=== PATIENT | female | born 1960 | race Caucasian/White ===

== ENCOUNTER 2020-08-01 09:03 | Emergency (ER) | payer MEDICAID, SELFPAY ==
--- NOTE | 2020-08-01 09:23 | HMH.EDUTC ---
[facility] [place] Impression: COVID-19 Disposition: Home, Self-Care Condition on Discharge: Good Instructions: Preventing the Spread of Coronavirus Discharge Instructions Additional Instructions: Drink plenty of fluids. Take tylenol for pain or fever. Return if you begin to have difficulty breathing. Follow up with your regular doctor. GO TO THE ER FOR ANY WORSENING SYMPTOMS Referrals: Emerita Rico [Primary Care Provider] - Time of Disposition: 09:24 Medical Decision Making - Medical Records Medical records reviewed: No: I reviewed the patient's medical records. - Td Inquiry Pt receiving controlled substance: No Vital Signs: 08/01/20 09:30 08/01/20 09:42 Temperature 98 F Temperature Source Oral Pulse Rate 87 Pulse Rate [Right] 78 Respiratory Rate 16 16 Blood Pressure 122/68 Blood Pressure [Right Arm] 127/73 Blood Pressure Mean [Right Arm] 91 Blood Pressure Source Automatic Cuff Blood Pressure Source [Right Arm] Automatic Cuff Blood Pressure Position Sitting Blood Pressure Position [Right Arm] Sitting 02 Sat by Pulse Oximetry 99 Oxygen Delivery Method Room Air Room Air Orders (Tests/Meds): ORDERS Category Date Time Status Covid-19 Nasal PCR ([facility]) Routine Lab 08/01/20 09:12 [place] [facility] [place] - General Stated complaint: Covid test Time Seen by Provider: 08/01/20 09:23 - History of Present Illness Provider Complaint: She had a positive covid test around 2 weeks ago. She has never had any symptoms. She was sent here by her workplace to get retested. - Related Data Allergies Allergy/AdvReac Type Severity Reaction Status Date / Time Sulfa (Sulfonamide Allergy Unknown Unverified 08/23/17 14:42 Antibiotics) [SULFA (SULFONAMIDE ANTIBIOTICS)] [facility] History - Hepatitis A Screen Attestation statement:: This patient has been screened for Hepatitis A risk factors. I have reviewed the patient's past medical history: Yes ROS Obtained: Yes All systems reviewed & no additional complaints - Constitutional Constitutional: Reports system reviewed and no additional complaints, except as docu - Eyes Eyes: Reports system reviewed and no additional complaints, except as docu - ENT Ears, Nose, Mouth, and Throat: Reports system reviewed and no additional complaints, except as docu - Cardiovascular Cardiovascular: Reports system reviewed and no additional complaints, except as docu - Respiratory Respiratory: Yes system reviewed and no additional complaints, except as docu - Gastrointestinal Gastrointestingal: Reports: system reviewed and no additional complaints, except as docu Physical Exam - General General appearance: alert, in no apparent distress - Head Head exam: atraumatic, normocephalic, normal inspection - Eye Eye exam: Present: normal appearance, PERRL, EOMI - ENT ENT exam: Present: normal exam, normal oropharynx, mucous membranes moist, TM's normal bilaterally, normal external ear exam - Neck Neck exam: Present: normal inspection, full ROM, trachea midline. Absent: meningismus, lymphadenopathy - Chest Chest inspection: Present: normal inspection, symmetric chest wall rise. Absent: tenderness - Respiratory Respiratory exam: Present: normal lung sounds bilaterally. Absent: respiratory distress - Cardiovascular Cardiovascular exam: Present: regular rate, normal rhythm. Absent: JVD - Abdominal Exam Abdominal exam: Present: soft, normal bowel sounds. Absent: distention, tenderness, guarding - Extremities Exam Extremities exam: Present: normal inspection, full ROM, normal capillary refill. Absent: calf tenderness - Back Exam Back exam: Present: normal inspection. Absent: tenderness - Neurological Exam Neurological exam: Present: alert, oriented X3 - Psychiatric Psychiatric exam: Present: normal affect, normal mood - Skin Skin exam: Present: warm, dry, intact, normal color - Lymp
[2020-08-01 09:30] VITALS: BP 127/73; PULSE 78; RESP 16; O2SAT 99; BMI 24.0
[2020-08-01 09:42] VITALS: BP 122/68; PULSE 87; RESP 16; TEMP 36.6; O2SAT 97
== END 2020-08-01 09:43 | disposition home or self-care (01) ==
PROVIDERS: Emergency Provider Nurse Practitioner Family; PCP Family Medicine
DX: U07.1 COVID-19 (principal)
CPT/HCPCS: 99201; U0003

== ENCOUNTER → 2021-01-12 10:39 | Outpatient (POV) | payer MEDICAID, SELFPAY ==
[2021-01-12 10:57] VITALS: BP 101/70; PULSE 80; RESP 18; O2SAT 98; BMI 23.7
--- NOTE | 2021-01-12 11:34 | HMH.PMCON ---
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 This is the area where the patient states she has not pain. Patient has tried and failed over 6 weeks of medication management, anti-inflammatories, chiropractic and physical therapy. Patient understands that this is diagnostic and potentially a neurotomy will benefit her in the future. I will follow-up with her afterwards reassess her symptoms at that time she has been instructed to call the office if she has any issues prior to her next appointment. Dr. Peter has reviewed this note and agrees with this plan of care. This note was dictated using voice recognition software and may contain errors or omissions HPI - Data of Consult Consult date: 01/12/21 Requesting Physician: Jennifer Quiroga APRN Primary Care Provider: Latosha Pan APRN - Consult Narrative Reason for consult: Back pain History of present illness: Ms. Loco is a 60 year old female who presents today for consultation regards to her lower back pain. Patient has had pain for several years however it is getting worse. She does have a physically demanding job. She rates her pain a 7 out of 10. Bending and lifting increases pain while rest and gabapentin decrease her pain. Patient has had instances of sciatica but does not complain of that today. Patient has tried and failed chiropractic and physical therapy. She is also on Valium. She is not on any anticoagulation therapy. Patient is interested in potentially injective therapy. She is extremely tender over her facet joints in her higher lumbar area. She has positive facet loading in this area. CC: Jennifer Quiroga APRN [facility] History I have reviewed the patient's past medical history: Yes Medical History: Denies:: Cancer, Diabetes Mellitus Type 1, Diabetes Mellitus Type 2, MRSA *Have you ever received a pneumonia vaccine?: Yes *Have you received a flu vaccine this season?: Yes Other Medical History: Reports: Arthritis Amputation: No Fractures: No - *Social History Smoking Status: Current every day smoker # Packs/Day (cigarettes): 2 Alcohol Intake: never *Occupational Status:: employed Housing: house Household Members: other *Travel in the last 8 weeks: None Family Hx:: Unable to obtain Review of Systems - Review of Systems ROS General: no recent weight change, no fever, no sleep disturbances Respiratory: no cough, no shortness of air, no recurring pulmonary infections Cardiovascular/Peripheral Vascular: No chest pain, No palpitations, no edema, no shortness of breath. Gastrointestinal: no new onset incontinence, normal bowel movements reported Genitourinary: no new onset incontinence Musculoskeletal: Back pain who Psychiatric: normal mood/ affect Neurological: [denies new onset weakness in extremities], [denies new onset balance issues] Meds Home Medications Medication Instructions Recorded Confirmed Type Diclofenac Sodium [Diclofenac 75mg 75 mg PO BID 01/12/21 01/12/21 History Tab] Gabapentin [Gabapentin 400mg Cap] 400 mg PO TID 01/12/21 01/12/21 History diazePAM [Valium 10mg tablet] 5 mg PO Q4-6H 01/12/21 01/12/21 History Allergies Allergy/AdvReac Type Severity Reaction Status Date / Time Sulfa (Sulfonamide Allergy Unknown Unverified 08/23/17 14:42 Antibiotics) [SULFA (SULFONAMIDE ANTIBIOTICS)] Objective Vital signs: Pulse Resp BP Pulse Ox 80 18 101/70 L 98 01/12/21 10:57 01/12/21 10:57 01/12/21 10:57 01/12/21 10:57 Na
== END ==
PROVIDERS: PCP Nurse Practitioner; Visit Provider Clinical Nurse Specialist Family Health
DX: M47.896 Other spondylosis, lumbar region (principal)
CPT/HCPCS: 99202; G0463

== ENCOUNTER 2021-01-23 10:31 | Day surgery (SDC) | payer MEDICAID, SELFPAY ==
[2021-01-23 10:46] VITALS: BP 120/71; PULSE 71; RESP 18; O2SAT 99; BMI 25.7
[2021-01-23 10:54] VITALS: BP 136/78; PULSE 74; RESP 18; O2SAT 98
[2021-01-23 10:56] VITALS: BP 137/89; PULSE 74; RESP 18; O2SAT 98
[2021-01-23 11:07] VITALS: BP 125/69; PULSE 70; RESP 18; O2SAT 98
--- NOTE | 2021-01-23 11:10 | P.PCN_ITS ---
- Procedure Date: 01/23/21 Time: 11:10 Anesthesiologist:: Dominic Peter MD Complications:: None Pre-procedure Diagnosis:: Degenerative disc disease of lumbar spine with lumbar spondylosis and lumbar facet arthropathy Post-procedure Diagnosis:: Same Indications for Procedure:: This patient is a pleasant 60-year-old white female who we are treating for low back pain she does have increasing pain over her facet joints of L2-L3 and L3- L4. There is increased pain with extension and twisting. We will plan on bilateral lumbar medial branch blocks of L2-L3 and L3-L4 today to see if this gi ves her relief of her pain symptoms. Procedure Details:: Lumbar medial branch block Informed consent was obtained and the risks and benefits of the procedure was explained to the patient. The back was prepped using ChloraPrep. The skin and subcutaneous tissues were anesthetized using lidocaine. I placed 22-gauge spinal needles into the facet joint/medial branches of L2-L3 and L3-L4 bilaterally. Needle placement was confirmed with dye. After this we injected 3 mL bupivacaine 0.25% and Depo-Medrol 20 mg into each facet joint/medial branch of L2-L3 and L3-L4 bilaterally. We used a total of 80 mg Depo-Medrol for both levels bilaterally. The patient tolerated the procedure well with no complications. Plan and Disposition:: We will follow-up with her in 2 weeks. Will reevaluate her symptoms at that time. If she does get significant relief from these injections then she may be a candidate for RF ablation to these facet joints of L2-L3 and L3-L4 bilaterally.
== END 2021-01-23 11:08 | disposition home or self-care (01) ==
PROVIDERS: PCP Family Medicine; Visit Provider Anesthesiology
DX: M51.36 Other intervertebral disc degeneration, lumbar region (principal); M47.816 Spondylosis without myelopathy or radiculopathy, lumbar region; M54.06 Panniculitis affecting regions of neck and back, lumbar region; M19.90 Unspecified osteoarthritis, unspecified site; Z72.0 Tobacco use; J44.9 Chronic obstructive pulmonary disease, unspecified; Z88.2 Allergy status to sulfonamides
CPT/HCPCS: 64493; 64494; J1030; Q9966

== ENCOUNTER 2021-04-12 09:09 | Emergency (ER) | payer MEDICAID, SELFPAY ==
[2021-04-12 09:15] VITALS: BP 124/72; PULSE 78; RESP 19; TEMP 36.4; O2SAT 99; BMI 24.3
--- NOTE | 2021-04-12 09:51 | HMH.EDUTC ---
[facility] [place]: Muscle strain Disposition: Home, Self-Care Condition on Discharge: Good Instructions: Muscle Strain Additional Instructions: rotate heat and ice tylenol as needed for pain rest follow up with pcp this week if symptoms worsen or no improvement return or be seen in ed Prescriptions: predniSONE [Prednisone 20mg Tab] 20 mg PO BID #10 tab Transmission Status: Pending to [facility]/pharmacy #[id number] Referrals: Emerita Rico [Primary Care Provider] - Time of Disposition: 10:03 Medical Decision Making - Td Inquiry Pt receiving controlled substance: No Vital Signs: 04/12/21 09:15 Temperature 97.6 F Temperature Source Oral Pulse Rate [Right Brachial] 78 Respiratory Rate 19 Blood Pressure [Right Arm] 124/72 Blood Pressure Mean [Right Arm] 89 Blood Pressure Source [Right Arm] Automatic Cuff Blood Pressure Position [Right Arm] Sitting 02 Sat by Pulse Oximetry 99 Oxygen Delivery Method Room Air [facility] [place] - General Chief complaint: Urgent Treatment Center Stated complaint: back pain Time Seen by Provider: 04/12/21 09:51 Mode of Arrival: Ambulatory Source of Information: Patient Limitations: No Limitations Description of Symptoms (Recalled from Triage Doc. by RN): PATIENT C/O BACK PAIN, POSSIBLE PULLED MUSCLE HEENT Symptoms (Recalled from RN notes): No Resp Symptoms (Recalled from RN notes): No Skin Symptoms (Recalled from RN notes): No MS Symptoms (Recalled from RN notes): Yes Functional Status (Recalled from RN notes): WNL - History of Present Illness Provider Complaint: 60 yr old female presents for low back pain that radiates up back. pt states she lifted yesterday and beleives she pulled a muscle. - Related Data Home Medications Medication Instructions Recorded Confirmed Diclofenac Sodium [Diclofenac 75mg 75 mg PO BID 01/12/21 01/12/21 Tab] Gabapentin [Gabapentin 400mg Cap] 400 mg PO TID 01/12/21 01/12/21 diazePAM [Valium 10mg tablet] 5 mg PO Q4-6H 01/12/21 01/12/21 Previous Rx's Medication Instructions Recorded predniSONE [Prednisone 20mg 20 mg PO BID #10 tab 04/12/21 Tab] Allergies Allergy/AdvReac Type Severity Reaction Status Date / Time Sulfa (Sulfonamide Allergy Unknown Verified 04/12/21 09:46 Antibiotics) [SULFA (SULFONAMIDE ANTIBIOTICS)] - Worker's Comp Is this a Worker's Comp case?: No [facility] History - Hepatitis A Screen Drug use history?: No High risk sexual behaviors?: No History of sexually transmitted infection?: No Currently employed?: No Childcare worker?: No Do you have indoor plumbing?: Yes Do you have electricity?: Yes Attestation statement:: This patient has been screened for Hepatitis A risk factors. I have reviewed the patient's past medical history: Yes Medical History: Denies:: Cancer, Diabetes Mellitus Type 1, Diabetes Mellitus Type 2, MRSA Other Medical History: Reports: Arthritis Other Surgeries: Yes: Tubal Ligation Amputation: No Fractures: No - Social History Smoking Status: Current every day smoker Tobacco Type: cigarettes # Packs/Day (cigarettes): 1 Alcohol Intake: never Occupational Status: employed Housing: house Household Members: spouse Family Hx:: Unable to obtain ROS Obtained: Yes Systems reviewed as appropriate & no additional complaints - Constitutional Constitutional: Reports system reviewed and no additional complaints, except as docu, Denies body ache, Denies fatigue - Eyes Eyes: Reports system reviewed and no additional complaints, except as docu, Denies change in vision - ENT Ears, Nose, Mouth, and Throat: Reports system reviewed and no additional complaints, except as docu, Denies dizziness - Cardiovascular Cardiovascular: Reports system reviewed and no additional complaints, except as docu, Denies chest pain - Respiratory Respiratory: Reports system reviewed and no additional complaints, except as docu, Denies change in phlegm color
[2021-04-12 10:06] VITALS: BP 124/72; PULSE 78; RESP 19; TEMP 36.4; O2SAT 99
== END 2021-04-12 10:11 | disposition home or self-care (01) ==
PROVIDERS: Emergency Provider Nurse Practitioner Family; PCP Family Medicine
DX: S39.012A Strain of muscle, fascia and tendon of lower back, initial encounter (principal); X50.0XXA Overexertion from strenuous movement or load, initial encounter; F17.210 Nicotine dependence, cigarettes, uncomplicated
CPT/HCPCS: 96372; 99202; G0463